=== PATIENT | male | born 1950 | race Caucasian/White ===

== ENCOUNTER 2016-07-26 06:44 | Emergency (ER) | payer OTHER, MEDICAID ==
[~2016-07-26] VITALS: Ht 165.1 cm; Wt 68.5 kg
[~2016-07-26 06:44] MED LIST: TRAMADOL PO
[2016-07-26 06:50] VITALS: Ht 165.1 cm; Wt 68.5 kg
[2016-07-26] MEDS ORDERED: MECLIZINE 12.5 MG TAB PO ONE (07:30)
[2016-07-26 07:32] LABS: ADD SCAN DIFF NO
--- NOTE | 2016-07-26 07:32 | RADRPT ---
PROCEDURE: XR Chest. CLINICAL INDICATION: chest pain, CVA TECHNIQUE: Single frontal view of the chest was obtained COMPARISON: 05/15/2013 FINDINGS: The heart and mediastinum are within normal limits. There are mild bibasilar atelectatic changes. The lungs are otherwise clear. There is no pleural effusion or pneumothorax. RPTAT: AA IMPRESSION: Mild bibasilar atelectatic changes. .Amadeo Duncan MD, MD Date Time Electronically viewed and signed by .Amadeo Duncan MD, on 07/26/2016 07:31 .S/
[2016-07-26 07:41] LABS: BASOPHILS % 0.4 % (0.0-2.0); EOSINOPHILS # 0.1 10^3/ul (0.0-0.5); EOSINOPHILS % 1.3 % (0.0-7.0); HEMATOCRIT 47.7 % (42.0-52.0); HEMOGLOBIN 16.6 g/dl (14.0-18.0); LYMPHOCYTES # 2.2 10^3/ul (0.8-2.9); LYMPHOCYTES % 28.3 % (15.0-51.0); MEAN CORPUSCULAR HEMOGLOBIN 29.3 pg (29.0-33.0); MEAN CORPUSCULAR HGB CONC 34.8 g/dl (32.0-37.0); MEAN CORPUSCULAR VOLUME 84.1 fl (82.0-101.0); MEAN PLATELET VOLUME 9.8 fl (7.4-10.4); MONOCYTE # 0.5 10^3/ul (0.3-0.9); MONOCYTES % 6.7 % (0.0-11.0); NEUTROPHILS % 62.9 % (39.0-77.0); PLATELET COUNT 185 10^3/UL (140-415); RED BLOOD COUNT 5.67 10^6/ul (4.70-6.10); RED CELL DISTRIBUTION WIDTH 12.1 % (11.5-14.5); WHITE BLOOD COUNT 7.9 10^3/ul (4.8-10.8)
[2016-07-26 07:55] LABS: INR 0.96; PROTIME 12.8 Sec (12.2-14.2)
[2016-07-26 07:56] LABS: PARTIAL THROMBOPLASTIN TIME 34.9 Sec (25.0-35.0)
[2016-07-26 07:59] LABS: ANION GAP 13 (8-16); BLOOD UREA NITROGEN 10 mg/dl (7-20); CALCIUM 9.2 mg/dl (8.4-10.2); CARBON DIOXIDE 26 mmol/L (21-31); CHLORIDE 107 mmol/L (97-110); CREATININE 0.65 mg/dl (0.61-1.24); GLUCOSE 224 mg/dl (70-220); POTASSIUM 3.7 mmol/L (3.5-5.1); SODIUM 142 mmol/L (135-144)
[2016-07-26 08:16] LABS: TROPONIN-I < 0.012 ng/ml (0.00-0.12)
--- NOTE | 2016-07-26 08:23 | RADRPT ---
PROCEDURE: CT brain without contrast CLINICAL INDICATION: Dizziness TECHNIQUE: CT of the brain without contrast was performed on a multidetector CT scanner, with multi planar reformats. One or more of the following dose reduction techniques were used: Automated expos ure control, adjustment in mA and / or kV according to patient size, use of iterative reconstructive technique. CTDIvol = 44 mGy; DLP = 630 mGy-cm. COMPARISON: None available FINDINGS: No acute intracranial hemorrhage is identified. No extra-axial fluid collection is seen. There is no mass effect. No midline shift is identified. Ventricles and sulci are within normal limits for size and configuration. Minimal areas of hypodensity are seen in the periventricular - deep white matter which is nonspecifi c but suggestive of chronic small vessel ischemic changes. Medina-white differentiation is preserved. Atherosclerotic calcifications at the intracranial internal carotid arteries are noted. Calvarium, and skull base are unremarkable. There is a chronic, likely post-traumatic deformity of the left lamina papyracea. Mild mucosal thickening/secretions seen in the right sphenoid sinus. IMPRESSION: 1. No evidence of acute intracranial pathology. 2. Minimal chronic small vessel ischemic changes. RPTAT: VV .Natalio Rosenberg MD, Date Time Electronically viewed and signed by .Natalio Rosenberg MD, on 07/26/2016 08:22 .O/
[2016-07-26 08:24] LABS: ADD UMIC NO; URINE BILIRUBIN (Dip) NEGATIVE (NEGATIVE); URINE BLOOD (Dip) NEGATIVE (NEGATIVE); URINE COLOR LT. YELLOW (YELLOW); URINE GLUCOSE (Dip) NEGATIVE (NEGATIVE); URINE KETONES (Dip) NEGATIVE (NEGATIVE); URINE LEUKOCYTE ESTERASE (Dip) NEGATIVE (NEGATIVE); URINE NITRITE (Dip) NEGATIVE (NEGATIVE); URINE TOTAL PROTEIN (Dip) NEGATIVE (NEGATIVE); URINE UROBILINOGEN (Dip) 0.2 E.U./dL (0.1-1.0)
[2016-07-26] MEDS ORDERED: MECL12.574 PO (08:37)
[2016-07-26] MEDS ORDERED: CARB15DR48 BOTH EARS (08:38)
[2016-07-26 08:39] VITALS: BP 161/83; PULSE 84; RESP 14
--- NOTE | 2016-07-26 08:39 | ERD ---
ER Documentation Chief Complaint Date/Time DATE: 07/26/16 TIME: 08:39 Chief Complaint dizziness, naomi knee pain, right leg burning sensation HPI Patient is a 66-year-old male with hypertension and diabetes who presents with dizziness. He said that he has had the symptoms for 3 days. The dizziness comes and goes. He is also complaining of neck pain. He has bilateral knee pain as well. He has had no treatment as of yet. He said that he has had a left-sided facial droop for the past 2 years. He does not know the name of his primary doctor. He says he is having trouble hearing from both ears as well. ROS All systems reviewed and are negative except as per history of present illness. Medications Home Meds Active Scripts Carbamide Peroxide* (Debrox*) 6.5% - 15 Ml Drops, 10 DROP BOTH EARS BID, #1 BOTTLE Prov:SAULO GONZALEZ MD 07/26/16 Meclizine Hcl* (Antivert*) 12.5 Mg Tab, 25 MG PO Q6H Y for DIZZINESS, #20 TAB Prov:SAULO GONZALEZ MD 07/26/16 Reported Medications [Tramadol] 50 MG TAB.RAPDIS No Conflict Check, 50 MG PO Q6HRS PRN 05/15/13 Allergies Allergies: Coded Allergies: No Known Allergy (Unverified , 05/15/13) PMhx/Soc History of Surgery: Yes (FOOT SURGERY) Anesthesia Reaction: No Hx Neurological Disorder: No Hx Respiratory Disorders: No Hx Cardiac Disorders: Yes (HTN) Hx Psychiatric Problems: No Hx Miscellaneous Medical Probl: Yes (DM) Hx Alcohol Use: Yes Hx Substance Use: No Hx Tobacco Use: Yes Smoking Status: Unknown if ever smoked FmHx Family History: No diabetes Physical Exam Vitals Vital Signs Date Time Temp Pulse Resp B/P Pulse Ox O2 Delivery O2 Flow Rate FiO2 07/26/16 08:39 84 14 161/83 98 Room Air 07/26/16 07:24 91 17 177/100 99 Room Air 07/26/16 07:24 0 07/26/16 06:50 98.1 99 18 178/88 99 Physical Exam Const: No acute distress Head: Atraumatic Eyes: Normal Conjunctiva ENT: Normal External Ears, Nose and Mouth. Tympanic membranes are occluded by cerumen impaction bilaterally Neck: Full range of motion..~ No meningismus. Resp: Clear to auscultation bilaterally Cardio: Regular rate and rhythm, no murmurs Abd: Soft, non tender, non distended. Normal bowel sounds Skin: No petechiae or rashes Back: No midline or flank tenderness Ext: No cyanosis, or edema Neur: Awake and alert, left-sided facial droop which patient says is chronic for the past 2 years, strength 5 out of 5 in the bilateral upper and lower extremities, no slurred speech Psych: Normal Mood and Affect Result Diagram: 07/26/1671607/26/16 0717 Results 24 hrs Laboratory Tests Test 07/26/16 07:17 07/26/16 07:40 White Blood Count 7.910^3/ul Red Blood Count 5.6710^6/ul Hemoglobin 16.6g/dl Hematocrit 47.7% Mean Corpuscular Volume 84.1fl Mean Corpuscular Hemoglobin 29.3pg Mean Corpuscular Hemoglobin Concent 34.8g/dl Red Cell Distribution Width 12.1% Platelet Count 31699^3/UL Mean Platelet Volume 9.8fl Neutrophils % 62.9% Lymphocytes % 28.3% Monocytes % 6.7% Eosinophils % 1.3% Basophils % 0.4% Nucleated Red Blood Cells % 0.0/100WBC Neutrophils # 5.010^3/ul Lymphocytes # 2.210^3/ul Monocytes # 0.510^3/ul Eosinophils # 0.110^3/ul Basophils # 0.010^3/ul Nucleated Red Blood Cells # 0.010^3/ul Prothrombin Time 12.8Sec Prothrombin Time Ratio 1.0 INR International Normalized Ratio 0.96 Activated Partial Thromboplast Time 34.9Sec Urine Color LT. YELLOW Urine Clarity CLEAR Urine pH 6.0 Urine Specific [place] 1.010 Urine Ketones NEGATIVE Urine Nitrite NEGATIVE Urine Bilirubin NEGATIVE Urine Urobilinogen 0.2 E.U./dL Urine Leukocyte Esterase NEGATIVE Urine Hemoglobin NEGATIVE Urine Glucose NEGATIVE% Urine Total Protein NEGATIVE Sodium Level 142mmol/L Potassium Level 3.7mmol/L Chloride Level 107mmol/L Carbon Dioxide Level 26mmol/L Anion Gap 13 Blood Urea Nitrogen 10mg/dl Creatinine 0.65mg/dl Glucose Level 224mg/dl Calcium Level 9.2mg/dl Troponin I < 0.012ng/ml Urine Opiates Screen Negative Urine Barbiturates Negative Urine Amphetamines Screen Negative Urine Benzodiazepines Screen Negative Urine Cocaine Screen Negative Urine Cannabinoids Negative Bedside Glucose 231mg/dL Current Medications Medications (Trade) Dose Ordered Sig/Francisca Route PRN Reason Start Time Stop Time Status Last Admin Dose Admin Meclizine HCl (Antivert) 25 mg ONCE ONCE PO 07/26/16 07:30 07/26/16 07:31 DC 07/26/16 07:39 Procedures/MDM EKG read by me: Rate/Rhythm: Regular rate and rhythm at a rate of 84 Intervals: Normal Impression: No evidence of ischemia or arrhythmia CT brain shows no acute hemorrhage per radiology. Smoking Cessation Therapy: Pt. was lectured for greater than 3 minutes on the health risks of continued smoking and the benefits of cessation. Patient is a 66-year-old male with diabetes and hypertension who presents with dizziness. CT scan of the brain shows no acute pathology per radiology. EKG shows no ischemia. The patient has bilateral cerumen impaction which may be contributing to his dizziness and I will give a prescription for Debrox. The patient will also be given meclizine. At this point I doubt stroke, intracranial mass, or intracranial hemorrhage. He will need to follow-up with a primary doctor within 24-48 hours and can return if symptoms worsen. Departure Diagnosis: Primary Impression: Hyperglycemia Additional Impressions: Dizziness Cerumen impaction Laterality: bilateral Qualified Code: H61.23 - Bilateral impacted cerumen Condition: Fair Patient Instructions: Hyperglycemia (High Blood Sugar), Inner Ear Problems: Causes of Dizziness (Vertigo), Dizziness, Unk Cause [facility] Usted se hoang hecho un examen mdico de control que le indica que no est en mj condicin que requiera tratamiento urgente en el Departamento de Emergencia. Un estudio ms profundo y el tratamiento de roth condicin pueden esperar sin ningn riesgo hasta que usted sea atendida/o en el consultorio de roth mdico o mj cl yamilex. Es responsabilidad suya arreglar mj andrés para el seguimiento del kelsi. MANEJO DE CONDICIONES NO URGENTES EN EL FUTURO 1) Si usted tiene un mdico de atencin primaria: Usted debera llamar a roth mdico de atencin primaria antes de venir al departamento de emergencia. Despus de las horas de consultorio, roth doctor o roth asociado/a est disponible por telfono. El mdico o enfermero de manuel en el servicio telefnico puede asesorarle por leatha medio para atender el problema, o kelsi contrario se puede programar mj andrés. 2) Si usted no tiene un mdico de atencin primaria: Llame al mdico o clnica de referencia que aparece abajo litzy las horas de consultorio para hacer mj andrés para que le vean. CLINICAS: [facility] [phone] [facility] [phone] [facility] [phone] [place] [phone] [place] [phone] [place] [id number] [phone] Additional Instructions: Llame al doctor MAANA y audrey mj ANDRÉS PARA DENTRO DE 1-2 COLIN.Dgale a la secretaria que nosotros le instruimos hacer esta andrés.Avise o llame si roth condicin se empeora antes de la adnrés. Regresa aqui si peor o no mejor. SAULO GONZALEZ MD Jul 26, 2016 08:39
[2016-07-26 08:52] LABS: BARBITURATES Negative (NEGATIVE); BENZODIAZEPINES Negative (NEGATIVE); CANNABINOIDS Negative (NEGATIVE); COCAINE Negative (NEGATIVE); OPIATES Negative (NEGATIVE)
== END 2016-07-26 08:51 | disposition home or self-care (01) ==
LOC: E/R 06:44
DX: E11.65 Type 2 diabetes mellitus with hyperglycemia (principal); H61.23 Impacted cerumen, bilateral; I10 Essential (primary) hypertension; R07.9 Chest pain, unspecified; Z87.891 Personal history of nicotine dependence
CPT/HCPCS: 36415; 70450; 71010; 80048; 80307; 81003; 82962; 83036; 84484; 85025; 85610; 85730; 93005